=== PATIENT | female | born 1940 | race Caucasian/White ===

== ENCOUNTER 2016-10-02 08:20 | Emergency (ER) | payer OTHER ==
[~2016-10-02] VITALS: Ht 152.4 cm; Wt 70.8 kg
--- NOTE | 2016-10-02 08:41 | ED GI/GU/ABDOMINAL COMPLAINT ---
History of Present Illness General Chief Complaint: Abdominal Pain/Flank Pain Stated Complaint: ABD PAIN BLACK STOOLS Source: patient, old records Exam Limitations: no limitations Allergies Coded Allergies: Sulfa (Sulfonamide Antibiotics) (Severe, HIVES 10/02/16) Reconcile Medications Amlodipine Besylate 10 MG TABLET 1 TAB PO DAILY HEART (Reported) Aspirin (Aspirin*) 81 MG TAB.CHEW 1 TAB PO DAILY HEART HEALTH (Reported) Dicyclomine Hydrochloride (Bentyl) 10 MG CAPSULE 1 CAP PO TID PRN PAIN Famotidine 20 MG TABLET 1 TAB PO BID GI (Reported) Glyburide 5 MG TABLET 1 TAB PO DAILY DIABETES (Reported) Lisinopril/Hydrochlorothiazide (Lisinopril-Hctz 20-12.5 MG Tab) 20 MG-12.5 MG TABLET 1 TAB PO DAILY HEART (Reported) Metformin HCl 1,000 MG TABLET 1 TAB PO DAILY DIABETES (Reported) Metformin HCl 1,000 MG TABLET 1 HTAB PO QPM DIABETES (Reported) Pioglitazone HCl 15 MG TABLET 1 TAB PO DAILY DIABETES (Reported) Triage Note: 75 Y/O FEMALE C/O RLQ PAIN AND "BLACK" DIARRHEA, ONSET LAST NIGHT AND CONTINUING OVERNIGHT. PT REPORTS "DARK BLACK" STOOLS; ON ASA DAILY - NO OTHER BLOOD THINNERS. PT FEELS "SICK TO MY STOMACH" - DENIES VOMITING. AFEBRILE. Triage Nurses Notes Reviewed? yes ? n Is pt currently ? No Onset: Abrupt Duration: hour(s): (11), constant Timing: recent history Quality/Severity: aching, cramping Severity Numbers: 6 Location: right lower quadrant Radiation: no radiation Activities at Onset: none Prior Abdominal Problems: none No Modifying Factors: none Associated Symptoms: diarrhea HPI: This is a 75-year-old female presents to ER with history of hypertension diabetes complaining of sudden onset right lower quadrant abdominal pain associated with multiple episodes of dark black diarrhea since around 10:30 last night. She states that she has not felt well since however denies dizziness lightheadedness fever chills nausea or vomiting. The patient denies noting any blood in her stool. No recent antibiotic use. She denies any chest pain back pain or radiation of her symptoms she has not taken anything for her symptoms. She takes an aspirin daily. She denies any other anti-inflammatory use. No history of surgeries on her abdomen. No modifying factors or associated symptoms otherwise (PRITI CRUZ) Vital Signs & Intake/Output Vital Signs & Intake/Output Vital Signs Date Time Temp Pulse Resp B/P B/P Pulse O2 O2 Flow FiO2 Mean Ox Delivery Rate 10/02 1006 98.2 60 18 139/66 95 Room Air 10/02 0823 97.7 72 18 166/69 97 Room Air Past History Travel History Traveled to [place] past 21 day No Medical History Any Pertinent Medical History? see below for history Neurological: NONE EENT: NONE Cardiovascular: hypertension Respiratory: NONE Gastrointestinal: NONE Hepatic: NONE Renal: NONE Musculoskeletal: NONE Psychiatric: NONE Endocrine: diabetes Blood Disorders: NONE Cancer(s): cervical cancer MANAGER OF CORPORATE/Reproductive: NONE Surgical History Surgical History: non-contributory Psychosocial History What is your primary language Upper Sorbian Tobacco Use: Quit >30 days ago Family History Hx Contributory? No (PRITI CRUZ) Review of Systems Review of Systems Constitutional: Reports: see HPI. All Other Systems: Reviewed and Negative Comments Review of systems: See HPI, All other systems negative. Constitutional, no chills no fever, no malaise HEENT: No visual changes no sore throat no congestion Cardiovascular: No chest pain , no palpitation Skin: no rashes, no change in skin Respiratory: No dyspnea no cough no sputum GI: No nausea no vomiting, diarrhea, no bloating/constipation : No dysuria No hematuria, no frequency, no discharge Muscle skeletal: no back pain, no neck pain, Neurologic: no confusion, no headache Psych: No stress Heme/endocrine: No bruising no bleeding Immunology: No lymphadenopathy (PRITI CRUZ) Physical Exam Physical Exam General Appearance: well developed/nourished, alert, awake Gastrointestinal: soft, tenderness Comments: Well-developed well-nourished person in no acute distress HEENT: Normal EENT exam; PERRL, EOMI,. HEAD is atraumatic. moist mucous membranes. Neck: Supple,normal range of motion Back: Nontender, no CVA tenderness. Full range of motion Cardiovascular: Regular rate and rhythms no murmurs rubs Respiratory: Chest nontender.There were no bony deformities, no asymmetry. No respiratory distress. Patient speaking in full complete sentences. Breath sounds clear to auscultation bilaterally: NO W/R/R Abdomen: Soft, right lower quadrant tenderness palpation nondistended, no appreciable organomegaly. Normal bowel sounds. No rebound/guarding, No appreciable enlargement of the abdominal aorta, No ascites. Rectal: Nontender. Heme negative stool. No mass/hemorrhoid, no fissure. Extremity: No edema, full range of motion of extremities Neuro: Alert oriented x3, motor sensory normal, There were no obvious focal neurologic abnormalities. Skin: No appreciable rash on exposed skin, skin is warm and dry. Psych: Mood and affect is normal, memory and judgment is normal. Core Measures ACS in differential dx? Yes Severe Sepsis Present: No Septic Shock Present: No (ARLEN DUKE,PRITI) Progress Differential Diagnosis: appendicitis, biliary colic, bowel obstruction, colon cancer, diverticulitis, gastritis, hepatitis, ischemic bowel, inflamm bowel dis, peptic ulcer, PUD/GERD, perforated viscous, SBO Plan of Care: Orders Procedure Date/time Status URINALYSIS 10/02 1020 Complete EKG 10/02 0854 Active MISTAKE 10/02 0840 Active Saline Lock 10/02 0839 Active TROPONIN LEVEL 10/02 0839 Complete PARTIAL THROMBOPLASTIN TIME 10/02 0839 Complete PROTHROMBIN TIME 10/02 0839 Complete LACTIC ACID 10/02 0839 Complete COMPREHENSIVE METABOLIC PANEL 10/02 0839 Complete CBC WITHOUT DIFFERENTIAL 10/02 0839 Complete TYPE & SCREEN (NOT X-MATCH) 10/02 0839 Complete Laboratory Tests 10/02/16 1139: Lactic Acid Cancelled 10/02/16 1025: Urine Color YEL, Urine Clarity HAZY H, Urine pH 6.0, Ur Specific [place] <= 1.005, Urine Protein NEG, Urine Ketones NEG, Urine Nitrite NEG, Urine Bilirubin NEG, Urine Urobilinogen 0.2, Ur Leukocyte Esterase TRACE H, Ur Microscopic SEDIMENT EXAMINED, Urine RBC 25-50 H, Urine WBC RARE, Ur Epithelial Cells MOD H, Urine Bacteria RARE H, Urine Hemoglobin LARGE H, Urine Glucose NEG 10/02/16 0855: PT 11.7, INR 1.12, APTT 28 10/02/16 0850: Anion Gap 12, Estimated GFR 49 L, BUN/Creatinine Ratio 24.5, Glucose 141 H, Lactic Acid 1.2, Calcium 9.5, Total Bilirubin 0.7, AST 49 H, ALT 50, Alkaline Phosphatase 73, Troponin I < 0.01, Total Protein 7.2, Albumin 4.4, Globulin 2.8, Albumin/Globulin Ratio 1.6, CBC w Diff NO MAN DIFF REQ, RBC 3.99 L, MCV 78.2 L , MCH 25.3 L, RDW 15.9 H, MPV 8.2, Gran % 65.5, Lymphocytes % 22.4, Monocytes % 6.4, Eosinophils % 4.1, Basophils % 1.6, Absolute Granulocytes 3.9, Absolute Lymphocytes 1.3, Absolute Monocytes 0.4, Absolute Eosinophils 0.2, Absolute Basophils 0.1, PUBS MCHC 32.4 L Labs ordered old records reviewed orthostatics negative patient is declining anything for pain when offered IV fluids running case discussed with Dr. muller, agrees with plan Patient's labs at baseline 950 patient resting in no apparent distress again declining anything for pain when offered 1120 patient has had no episodes of diarrhea here in the department she denies pain. Discussed with her at length and her family at length her CAT scan and lab results. They feel comfortable with plan I discussed with the patient at length all of their results. I had an extensive conversation regarding need for close follow up with their primary care physician this week as well as return precautions. I answered all of their questions, they feel comfortable with the plan and follow-up care. I discussed the medications that they will receive with the patient. I gave them signs and symptoms that could indicate an adverse reaction. I have advised them to limit their activities until they can see how they respond to the medication. (ARLEN DUKE,PRITI) Diagnostic Imaging: Viewed by Me: CT Scan. Discussed w/RAD: CT Scan. Radiology Impression: PATIENT: IAN PRINCE PRESENT AGE: 75 PATIENT ACCOUNT NO: [id number] : 42 LOCATION: [facility] ORDERING PHYSICIAN: PRITI DUKE SERVICE DATE: 10/02/16 EXAM TYPE: CAT - CT ABD & PELVIS W IV CONTRAST EXAMINATION: CT ABDOMEN AND PELVIS WITH CONTRAST CLINICAL INFORMATION: Right lower quadrant abdominal pain and diarrhea. Evaluate for diverticulitis or colitis. COMPARISON: CT of abdomen pelvis from TECHNIQUE: Multidetector volumetric imaging was performed of the abdomen and pelvis before and after the IV administration of 94 mL of Optiray 320 intravenous contrast. Sagittal and coronal reformatted images were obtained on the technologist's workstation. DLP: 415 mGy-cm FINDINGS: LUNG BASES: Mild subsegmental atelectasis in the visualized inferior lingula. Atherosclerotic calcification of coronary arteries. No pericardial or pleural effusion. LIVER, GALLBLADDER, AND BILIARY TREE: Diffuse hepatic steatosis. Otherwise, liver is unremarkable. Gallbladder has multiple calcified stones. No gallbladder wall edema or pericholecystic inflammatory change. PANCREAS: Partial atrophy and fatty replacement of the pancreas. No pancreatic ductal dilatation or peripancreatic edema. SPLEEN: Unremarkable. ADRENAL GLANDS: Unremarkable. KIDNEYS AND URETERS: Kidneys enhance symmetrically. There is focal, chronic cortical thinning/scarring of the posterior right upper pole. Mild right hydronephrosis and hydroureter without perinephric edema. BLADDER: Urinary bladder is moderately distended and has normal wall thickness. 0.3 cm calculus along the right posterior bladder wall is seen in the expected region of the ureteral orifice. GASTROINTESTINAL TRACT: Stomach is unremarkable. Small bowel is normal in size. Terminal ileum is normal. The appendix is not definitively seen. However, there are no inflammatory changes in the right lower quadrant. The colon is underdistended. There is chronic submucosal fat deposition along the colonic wall. This is likely related to patient body habitus rather than remote inflammatory disease. There is no pericolonic fat stranding. No ascites or pneumoperitoneum. ABDOMINAL WALL: Chronic diastases of rectus abdominis muscles and there is a very small fat-containing umbilical hernia. LYMPH NODES: No pathologic sized lymph nodes in the abdomen or pelvis. VASCULAR: Mild calcific atherosclerosis of the abdominal aorta without aneurysm. The ectatic right common iliac artery is 1.6 cm diameter whereas the left common iliac artery is 1.2 cm diameter, unchanged compared to 12/15/2010. PELVIC VISCERA: Uterus is surgically absent. Multiple phleboliths are present in the pelvis. No adnexal mass or pelvic free fluid. OSSEOUS STRUCTURES: Findings the lumbar spine include L4-L5 facet osteoarthritis with 0.2 cm anterolisthesis of L4 on L5. At L5-S1, there is facet osteoarthritis and degenerative disc space narrowing with vacuum disc phenomenon, osteophytosis and 0.2 cm retrolisthesis of L5 on S1. Mild osteoarthritis of hips, sacroiliac joints and pubic symphysis. Stable lipoma within the partially visualized proximal left adductor [place] muscle. IMPRESSION: 1. No acute imaging abnormality along the gastrointestinal tract. 2. Mild right hydronephrosis and hydroureter. Small, 3 mm calculus along the posterior right bladder wall could represent a recently passed calculus. 3. Cholelithiasis without cholecystitis. 4. Diffuse hepatic steatosis. DICTATED BY: WILEY ROSE MD DATE/TIME DICTATED:10/02/16957 MOLD CARRIER:NIKOLAI DATE/TIME TRANSCRIBED:10/02/16957 CONFIDENTIAL, DO NOT COPY WITHOUT APPROPRIATE AUTHORIZATION. <Electronically signed in Other Vendor System> SIGNED BY: WILEY ROSE MD 10/02/16 1014 Initial ED EKG: normal p-waves, normal QRS complex, normal sinus rhythm (60), nonspecific ST T wave chg Prior EKG: unchanged (08/2006) (PRITI CRUZ) Departure Departure Time of Disposition: 1115 Disposition: HOME OR SELF CARE Condition: Stable Clinical Impression Primary Impression: Kidney stones Secondary Impressions: Cholelithiasis, Diarrhea Referrals: Lyle BEAL MD (PCP/Family) Additional Instructions: BENTYL FOR PAIN. BLAND DIET, CLEAR LIQUIDS, ADVANCE TOLERATED. FOLLOW UP WITH DR BEAL TOMORROW. RETURN TO THE ER IF YOU HAVE PERSISTENT OR WORSENING OF YOUR SYMPTOMS OR ANY OTHER CONCERNS. THIS WAS SENT TO YOUR [facility] Departure Forms: Customer Survey General Discharge Information Prescriptions: Current Visit Scripts Dicyclomine Hydrochloride (Bentyl) 1 CAP PO TID PRN PAIN #12 CAP (PRITI CRUZ) PA/SYSTEM SOFTWARE PROGRAMMER Co-Sign Statement Statement: ED Attending supervision documentation- [x] I saw and evaluated the patient. I have also reviewed all the pertinent lab results and diagnostic results. I agree with the findings and the plan of care as documented in the PA's/SYSTEM SOFTWARE PROGRAMMER's documentation. [] I have reviewed the ED Record and agree with the PA's/SYSTEM SOFTWARE PROGRAMMER's documentation. [] Additions or exceptions (if any) to the PAs/SYSTEM SOFTWARE PROGRAMMER's note and plan are summarized below: [] (GABRIEL MULLER DO)
[2016-10-02] MEDS ORDERED: METFORMIN HCL1000 M1 PO ×2 (08:48→08:49)
[2016-10-02] MEDS ORDERED: GLYBURIDE5 M1 PO (08:49)
[2016-10-02] MEDS ORDERED: FAMOTIDINE20 M1 PO (08:49)
[2016-10-02] MEDS ORDERED: AMLODIPINE BESY10 M1 PO (08:50)
[2016-10-02] MEDS ORDERED: ASPIRIN81 M4 PO (08:50)
[2016-10-02] MEDS ORDERED: PIOGLITAZONE HC15 MG PO (08:50)
[2016-10-02] MEDS ORDERED: LISINOPRIL-HCT1 EACH PO (08:50)
[2016-10-02 09:02] LABS: ABSOLUTE BASOPHIL COUNT 0.1 /CUMM (0.0-0.2); ABSOLUTE EOSINOPHIL COUNT 0.2 /CUMM (0.0-0.7); ABSOLUTE GRANULOCYTE CT 3.9 /CUMM (1.4-6.5); ABSOLUTE LYMPH COUNT 1.3 /CUMM (1.2-3.4); ABSOLUTE MONOCYTE COUNT 0.4 /CUMM (0.10-0.60); BASOPHIL % 1.6 % (0.0-2.0); EOSINOPHIL % 4.1 % (0-5); GRANULOCYTE % 65.5 % (42.2-75.2); HEMATOCRIT 31.3 % (37-47); MEAN CORPUSCULAR HGB 25.3 PG (27.0-31.0); MEAN CORPUSCULAR HGB CONC 32.4 G/DL (33.0-37.0); MEAN CORPUSCULAR VOLUME 78.2 FL (81.0-99.0); MEAN PLATELET VOLUME 8.2 FL (7.4-10.4); PLATELET COUNT 232 /CUMM (130-400); RBC DISTRIBUTION WIDTH 15.9 % (11.5-14.5); RED BLOOD CELL CT 3.99 /CUMM (4.20-5.40); WHITE BLOOD CELL COUNT 5.9 /CUMM (4.8-10.8)
[2016-10-02 09:22] LABS: PT 11.7 SEC (9.4-12.5); PTT 28 SEC (25-37)
[2016-10-02 10:06] VITALS: BP 139/66
--- NOTE | 2016-10-02 10:14 | CT SCAN REPORT ---
EXAMINATION: CT ABDOMEN AND PELVIS WITH CONTRAST CLINICAL INFORMATION: Right lower quadrant abdominal pain and diarrhea. Evaluate for diverticulitis or colitis. COMPARISON: CT of abdomen pelvis from 11/15/2010 TECHNIQUE: Multidetector volumetric imaging was performed of the abdomen and pelvis before and after the IV administration of 94 mL of Optiray 320 intravenous contrast. Sagittal and coronal reformatted images were obtained on the technologist's workstation. DLP: 415 mGy-cm FINDINGS: LUNG BASES: Mild subsegmental atelectasis in the visualized inferior lingula. Atherosclerotic calcification of coronary arteries. No pericardial or pleural effusion. LIVER, GALLBLADDER, AND BILIARY TREE: Diffuse hepatic steatosis. Otherwise, liver is unremarkable. Gallbladder has multiple calcified stones. No gallbladder wall edema or pericholecystic inflammatory change. PANCREAS: Partial atrophy and fatty replacement of the pancreas. No pancreatic ductal dilatation or peripancreatic edema. SPLEEN: Unremarkable. ADRENAL GLANDS: Unremarkable. KIDNEYS AND URETERS: Kidneys enhance symmetrically. There is focal, chronic cortical thinning/scarring of the posterior right upper pole. Mild right hydronephrosis and hydroureter without perinephric edema. BLADDER: Urinary bladder is moderately distended and has normal wall thickness. 0.3 cm calculus along the right posterior bladder wall is seen in the expected region of the ureteral orifice. GASTROINTESTINAL TRACT: Stomach is unremarkable. Small bowel is normal in size. Terminal ileum is normal. The appendix is not definitively seen. However, there are no inflammatory changes in the right lower quadrant. The colon is underdistended. There is chronic submucosal fat deposition along the colonic wall. This is likely related to patient body habitus rather than remote inflammatory disease. There is no pericolonic fat stranding. No ascites or pneumoperitoneum. ABDOMINAL WALL: Chronic diastases of rectus abdominis muscles and there is a very small fat-containing umbilical hernia. LYMPH NODES: No pathologic sized lymph nodes in the abdomen or pelvis. VASCULAR: Mild calcific atherosclerosis of the abdominal aorta without aneurysm. The ectatic right common iliac artery is 1.6 cm diameter whereas the left common iliac artery is 1.2 cm diameter, unchanged compared to 12/15/2010. PELVIC VISCERA: Uterus is surgically absent. Multiple phleboliths are present in the pelvis. No adnexal mass or pelvic free fluid. OSSEOUS STRUCTURES: Findings the lumbar spine include L4-L5 facet osteoarthritis with 0.2 cm anterolisthesis of L4 on L5. At L5-S1, there is facet osteoarthritis and degenerative disc space narrowing with vacuum disc phenomenon, osteophytosis and 0.2 cm retrolisthesis of L5 on S1. Mild osteoarthritis of hips, sacroiliac joints and pubic symphysis. Stable lipoma within the partially visualized proximal left adductor [place] muscle. IMPRESSION: 1. No acute imaging abnormality along the gastrointestinal tract. 2. Mild right hydronephrosis and hydroureter. Small, 3 mm calculus along the posterior right bladder wall could represent a recently passed calculus. 3. Cholelithiasis without cholecystitis. 4. Diffuse hepatic steatosis.
[2016-10-02] MEDS ORDERED: BENTYL10 M1 PO (11:16)
== END 2016-10-02 11:24 ==
LOC: ERH 08:20
PROVIDERS: Physician Assistant Medical
DX: N20.0 Calculus of kidney (principal); K80.20 Calculus of gallbladder without cholecystitis without obstruction; R19.7 Diarrhea, unspecified
CPT/HCPCS: 74177; 81001; 93005; 93010; 96360; 96361; Q9965